=== PATIENT | female | born 1945 | race Caucasian/White ===

== ENCOUNTER 2021-09-29 05:06 | Emergency (ER) | payer MEDICARE, OTHER ==
[~2021-09-29 05:06] MED LIST: ACETAMINOPHEN500 M1 PO; ASPIRIN EC81 MG PO; CLONIDINE HCL0.2 MG PO; CRESTOR20 M1 PO; DEPAKOTE SPRIN125 M2 PO; DITROPAN XL *OUT5 MG PO; HUMALOG100 UNIT/1 SC; LINZESS145 MCG PO; MELATONIN5 M2 PO; MIRALAX 238GM238 GM PO; MIRALAX17 GM PO; NORCO 5-325 TA1 EACH PO; NORVASC2.5 MG PO; OMEPRAZOLE 20MG20 MG PO; SENNA-DOCUSATE1 EACH PO; TOPROL XL 25MG25 MG PO; XARELTO10 MG PO; ZOLOFT50 MG PO
[2021-09-29 05:30] LABS: BASOPHIL 0.5 % (0-2); EOSINOPHIL 0.8 % (0-7); HGB 12.5 g/dl (12.5-16.0); LYMPHOCYTE 14.5 % (15-48); MCHC 32.1 g/dL (32.0-36.0); MCV 90.5 fL (78.0-100.0); MPV 8.8 fL (6.0-9.5); NEUTROPHIL 73.7 % (41-80); NRBC 0; PLT 149 K/uL (150-400); RBC 4.31 M/uL (4.20-5.40); RDW 15.1 % (11.5-14.0); WBC 7.3 K/uL (4.0-10.5)
[2021-09-29 06:03] LABS: ALBUMIN 3.1 g/dL (3.4-5.0); BILIRUBIN - TOTAL 0.4 mg/dL (0.2-1.0); BUN/CREAT RATIO (CALC) 17.7 RATIO; CREATININE 0.96 mg/dL (0.51-0.95); GLOBULIN (CALCULATION) 4.3 g/dL; POTASSIUM 4.2 mmol/L (3.5-5.1); TOTAL PROTEIN 7.4 g/dL (6.4-8.2)
[2021-09-29 09:32] LABS: BILIRUBIN NEGATIVE (NEGATIVE); BLOOD 2+ Ery/uL (NEGATIVE); CLARITY CLEAR (CLEAR); COLOR YELLOW (YELLOW); GLUCOSE (U) NORMAL (NORMAL); LEUKOCYTES 3+ Leu/uL (NEGATIVE); NITRITE NEGATIVE (NEGATIVE); PROTEIN 1+ mg/dL (NEGATIVE); SPECIFIC GRAVITY 1.015 (1.001-1.030); UROBILINOGEN 0.2 mg/dL (0.2-1.0); pH 7.5 (5.0-9.0)
[2021-09-29 09:40] LABS: BACTERIA 3+; URINARY WBC TNTC
== END 2021-09-29 11:25 | disposition other institution (70) ==
LOC: FER 05:06
PROVIDERS: Internal Medicine
DX: G40.901 Epilepsy, unspecified, not intractable, with status epilepticus (principal); U07.1 COVID-19; J69.0 Pneumonitis due to inhalation of food and vomit; E11.9 Type 2 diabetes mellitus without complications; Z86.73 Personal history of transient ischemic attack (TIA), and cerebral infarction without residual deficits; Z88.0 Allergy status to penicillin; Z88.6 Allergy status to analgesic agent; Z91.041 Radiographic dye allergy status
CPT/HCPCS: 36415; 36600; 70450; 71045; 80053; 80164; 81001; 82803; 84145; 84484; 85025; 87076; 87088; 87186; 93005; J1953; U0002

== ENCOUNTER 2021-11-26 15:03 | Emergency (ER) | payer MEDICARE, OTHER ==
[2021-11-26 15:43] LABS: BASOPHIL 0.9 % (0-2); EOSINOPHIL 1.7 % (0-7); HCT 41.6 % (37.0-47.0); HGB 13.4 g/dl (12.5-16.0); LYMPHOCYTE 16.9 % (15-48); MCH 28.9 pg (25.0-31.0); MCHC 32.2 g/dL (32.0-36.0); MCV 89.8 fL (78.0-100.0); MPV 9.5 fL (6.0-9.5); NEUTROPHIL 68.1 % (41-80); NRBC 0; PLT 191 K/uL (150-400); RBC 4.63 M/uL (4.20-5.40); RDW 14.8 % (11.5-14.0); WBC 7.7 K/uL (4.0-10.5)
[2021-11-26 15:54] LABS: ALBUMIN 3.6 g/dL (3.4-5.0); BILIRUBIN - TOTAL 0.3 mg/dL (0.2-1.0); BUN/CREAT RATIO (CALC) 29.2 RATIO; CREATININE 0.89 mg/dL (0.51-0.95); GLOBULIN (CALCULATION) 4.8 g/dL; MAGNESIUM 1.8 mg/dL (1.8-2.4); POTASSIUM 4.6 mmol/L (3.5-5.1); TOTAL PROTEIN 8.4 g/dL (6.4-8.2)
[2021-11-26 16:50] LABS: BILIRUBIN NEGATIVE (NEGATIVE); BLOOD TRACE-INTACT Ery/uL (NEGATIVE); COLOR YELLOW (YELLOW); GLUCOSE (U) 2+ mg/dL (NORMAL); LEUKOCYTES 1+ Leu/uL (NEGATIVE); NITRITE NEGATIVE (NEGATIVE); PROTEIN 2+ mg/dL (NEGATIVE); SPECIFIC GRAVITY >=1.030 (1.001-1.030); UROBILINOGEN 0.2 mg/dL (0.2-1.0)
[2021-11-26 16:52] LABS: CLARITY HAZY (CLEAR)
[2021-11-26 16:55] LABS: BACTERIA 3+; URINARY RBC RARE; URINARY WBC 20-50
[2021-11-26 16:56] LABS: SQUAMOUS EPITHELIAL CELLS RARE
[2021-11-26 18:18] LABS: LACTIC ACID 5.6 mmol/L (0.4-1.9)
== END 2021-11-28 14:37 | disposition other institution (70) ==
LOC: FER 15:03
PROVIDERS: Emergency Medicine
DX: A41.9 Sepsis, unspecified organism (principal); G40.909 Epilepsy, unspecified, not intractable, without status epilepticus; N39.0 Urinary tract infection, site not specified; E11.9 Type 2 diabetes mellitus without complications; Z88.0 Allergy status to penicillin; Z91.041 Radiographic dye allergy status; Z88.6 Allergy status to analgesic agent; Z91.013 Allergy to seafood
CPT/HCPCS: 36415; 70450; 71250; 80053; 80164; 81001; 82550; 83605; 83735; 84484; 85025; 87040; 87076; 87088; 87186; 93005; J0692; J1815; J1953; J2060; J7030

== ENCOUNTER 2022-01-28 17:24 | Emergency (ER) | payer MEDICARE, OTHER ==
[2022-01-28 18:04] LABS: BASOPHIL 0.9 % (0-2); HGB 12.3 g/dl (12.5-16.0); LYMPHOCYTE 19.1 % (15-48); MCH 28.9 pg (25.0-31.0); MCHC 32.4 g/dL (32.0-36.0); MCV 89.4 fL (78.0-100.0); MPV 9.2 fL (6.0-9.5); NEUTROPHIL 70.4 % (41-80); NRBC 0; PLT 182 K/uL (150-400); RBC 4.25 M/uL (4.20-5.40); RDW 14.5 % (11.5-14.0)
[2022-01-28 18:25] LABS: BILIRUBIN NEGATIVE (NEGATIVE); BLOOD TRACE-INTACT Ery/uL (NEGATIVE); CLARITY CLEAR (CLEAR); COLOR YELLOW (YELLOW); GLUCOSE (U) 3+ mg/dL (NORMAL); LEUKOCYTES 1+ Leu/uL (NEGATIVE); NITRITE NEGATIVE (NEGATIVE); PROTEIN 2+ mg/dL (NEGATIVE); SPECIFIC GRAVITY >=1.030 (1.001-1.030); UROBILINOGEN 0.2 mg/dL (0.2-1.0); pH 5.5 (5.0-9.0)
[2022-01-28 18:34] LABS: CREATININE 0.94 mg/dL (0.51-0.95); POTASSIUM 3.9 mmol/L (3.5-5.1)
[2022-01-28 18:34] LABS: AMORPHOUS URATES CRYSTALS TRACE; BACTERIA 2+; URINARY WBC TNTC
[2022-01-28 19:13] LABS: CORONAVIRUS 2019 SARS-COV-2 NEGATIVE (NEGATIVE); INFLUENZA A NAA NEGATIVE (NEGATIVE)
[2022-01-28] MEDS ORDERED: BACTRIM DS TAB1 EACH PO (23:00)
== END 2022-01-29 02:27 | disposition home or self-care (01) ==
LOC: FER 17:24
PROVIDERS: Nurse Practitioner Family
DX: G40.909 Epilepsy, unspecified, not intractable, without status epilepticus (principal); N39.0 Urinary tract infection, site not specified; I10 Essential (primary) hypertension; E11.9 Type 2 diabetes mellitus without complications; G30.9 Alzheimer's disease, unspecified; Z88.6 Allergy status to analgesic agent; Z88.1 Allergy status to other antibiotic agents; Z91.041 Radiographic dye allergy status; Z91.013 Allergy to seafood; Z20.822 Contact with and (suspected) exposure to COVID-19; Z28.311 Partially vaccinated for COVID-19
CPT/HCPCS: 36415; 80048; 81001; 85025; 87088; J1953; J2060; J7030; U0002

== ENCOUNTER 2022-01-29 10:25 | Emergency (ER) | payer MEDICARE, OTHER ==
[~2022-01-29 10:25] MED LIST changes: +BACTRIM DS TAB1 EACH PO
== END 2022-01-29 14:21 | disposition home or self-care (01) ==
LOC: FER 10:25
DX: S00.83XA Contusion of other part of head, initial encounter (principal); Z88.0 Allergy status to penicillin; Z88.1 Allergy status to other antibiotic agents; Z91.013 Allergy to seafood; Z91.041 Radiographic dye allergy status; W18.30XA Fall on same level, unspecified, initial encounter; Y92.129 Unspecified place in nursing home as the place of occurrence of the external cause
CPT/HCPCS: 70450